=== PATIENT | female | born 1985 | race Hispanic/Latino ===

== ENCOUNTER → 2024-06-01 | Outpatient (CLI) | payer BC ==
[2024-06-01 12:15] LABS: CREATININE 0.5 mg/dL (0.5-1.0); POTASSIUM 4.5 mmol/L (3.5-5.1)
== END | disposition home or self-care (01) ==
LOC: LAB 10:01
PROVIDERS: ATTEND Internal Medicine Cardiovascular Disease
DX: I10 Essential (primary) hypertension (principal)
CPT/HCPCS: 36415; 80048

== ENCOUNTER → 2024-06-02 | Outpatient (CLI) | payer BC ==
[~2024-06-02] MED LIST: IOHEXOL-350 50ML VIAL IV ONE; IOHEXOL-350 75 ML VIAL IV ONE; metoPROLOL tartRATE 1 MG/ML 5ML VIAL IV ONE
--- NOTE | 2024-06-02 11:59 | HMCIMG ---
CT CARDIAC ANGIO W/CONT. CCTA HISTORY: Dysphagia COMPARISON: None TECHNIQUE: Multiple sequential axial images of the chest were obtained along with the CT angiogram of the chest study. Patient was given 100 cc of Omnipaque through intravenous route. FINDINGS: There is no evidence of pulmonary nodule or parenchymal disease. No pleural effusion or pericardial effusion is seen. There is no evidence of pneumothorax. There are normal size mediastinal and hilar lymph nodes. The heart is not enlarged. Degenerative changes of the thoracolumbar spine are present. IMPRESSION: 1. No evidence of pulmonary nodule or effusion is seen. Please see CT angiogram report of coronary arteries.
== END | disposition home or self-care (01) ==
LOC: RAH 08:20
PROVIDERS: ATTEND Internal Medicine Cardiovascular Disease
DX: R06.00 Dyspnea, unspecified (principal); M47.815 Spondylosis without myelopathy or radiculopathy, thoracolumbar region
CPT/HCPCS: 75574; J3490; Q9967 ×2

== ENCOUNTER → 2024-08-04 | Outpatient (CLI) | payer BC ==
[~2024-08-04] MED LIST changes: +GADOTERATE MEGLUMINE 10 MMOL/20 ML VIAL IV ONE; -IOHEXOL-350 50ML VIAL IV ONE; -IOHEXOL-350 75 ML VIAL IV ONE; -metoPROLOL tartRATE 1 MG/ML 5ML VIAL IV ONE
--- NOTE | 2024-08-04 16:55 | HMCIMG ---
Exam Type: MRI of the pelvis with and without gadolinium Clinical Information: Comparison: Technique: Examination is done with multiecho multiplanar sequences, with and without fat saturation, before and after contrast administration. Findings: The uterus is enlarged and there is an endometrial based mass measuring 12 cm in transverse diameter by 9.7 cm in cephalocaudal diameter with an anteroposterior diameter of 8.3 cm. The mass shows irregular enhancement administration and is worrisome for neoplasm. There is free fluid within the cul-de-sac. The bony and cartilaginous structures of the pelvis are preserved. There is no significant effusion. No fractures or dislocations are identified. No bone lesions are seen. The other visualized soft tissue structures of the pelvis are unremarkable as well. Visualized portions of the bladder appear unremarkable. Visualized other pelvic viscera, muscular and subcutaneous compartments are preserved. Impression: Suspicious mass of the endometrium. Neoplasm cannot be excluded. Consider tissue diagnosis.
== END | disposition home or self-care (01) ==
LOC: RAH 13:04
PROVIDERS: ATTEND Internal Medicine Nephrology
DX: N85.2 Hypertrophy of uterus (principal)
CPT/HCPCS: 72197; A9575